=== PATIENT | male | born 2000 | race Caucasian/White ===

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

== ENCOUNTER 2021-06-29 03:10 | Emergency (ER) | payer SELFPAY ==
[~2021-06-29] VITALS: Ht 180.3 cm; Wt 79.3 kg
[2021-06-29 03:15] VITALS: BP 127/82
[2021-06-29 03:54] LABS: BACTERIA,URINE TRACE /HPF; BILIRUBIN,URINE NEGATIVE (NEGATIVE); CLARITY,URINE SLIGHTLY CLOUDY; COLOR,URINE YELLOW; GLUCOSE, URINE (UA) NEGATIVE (NEGATIVE); KETONES,URINE NEGATIVE (NEGATIVE); LEUKOCYTE ESTERASE ,URINE NEGATIVE (NEGATIVE); NITRITE,URINE NEGATIVE (NEGATIVE); PH,URINE 5.5 (5-9); PROTEIN,URINE 1+ (NEGATIVE); RBC,URINE >100 /HPF
[2021-06-29] MEDS ORDERED: DOXY100T2 PO (04:10)
--- NOTE | 2021-06-29 04:10 | ED GU-Male ---
General Chief Complaint: - Urinary Stated Complaint: PAIN ON URINATION Nursing Triage Note: Pt awake, alert, oriented, ambulated from waiting room to ED2 without difficulty. Reports pain during urination for the past day et also states he saw blood in his urine the last time he voided. Airway intact. Respirations even et unlabored. Skin warm, dry, appropriate for ethnicity. No sx of distress or discomfort. Source: patient Exam Limitations: no limitations History of Present Illness Date Seen by Provider: Jun 29, 2021 Time Seen by Provider: 03:45 Initial Comments 20 y/o male w painful urination starting today. Also noticed blood in his urine x 1. no penile DC. Sexually active, one partner. NO Hx STD's. No rash, no penile lesions. Allergies and Home Medications Allergies Coded Allergies: No Known Drug Allergies (Unverified , 08/06/19) Home Medications Doxycycline Hyclate 100 Mg Tablet, 100 MG PO BID Prescribed by: DESTINY CHAVIRA on 08/06/19 1700 Doxycycline Hyclate 100 Mg Tablet, 100 MG PO BID Prescribed by: JAY BUSCH on 06/29/21 0410 Patient Home Medication List Home Medication List Reviewed: Yes Review of Systems Review of Systems Constitutional: No chills, No dizziness, No fever, No malaise, No weakness Respiratory: no symptoms reported Cardiovascular: no symptoms reported Gastrointestinal: No abdominal pain, No constipation, No diarrhea, No loss of appetite, No nausea, No vomiting Genitourinary: see HPI; denies discharge; dysuria; denies frequency, denies flank pain; hematuria; denies urgency Musculoskeletal: back pain (had back pain R sided (CVA) @ onset, now resolved); No joint pain, No muscle pain Past Pbaqmkk-Fruvny-Nkgwhw Hx Patient Social History Tobacco Use?: No Use of E-Cig and/or Vaping dev: No Substance use?: No Alcohol Use?: No Pt feels they are or have been: No Immunizations Up To Date Influenza Vaccine Up-to-Date: No; Not Current Seasonal Allergies Seasonal Allergies: No Past Medical History Surgeries: Yes (Ear drum repair, BMT) Respiratory: No Cardiac: No Neurological: No Genitourinary: No Gastrointestinal: No Musculoskeletal: No Endocrine: No HEENT: No Cancer: No Psychosocial: No Integumentary: No Blood Disorders: No Physical Exam Vital Signs Vital Signs - First Documented 06/29/21 03:15 Temp 36.4 Pulse 70 Resp 18 B/P (MAP) 127/82 (97) Pulse Ox 98 O2 Delivery Room Air Capillary Refill : Less Than 3 Seconds Height, Weight, BMI Height: '" Weight: lbs. oz. kg; 24.00 BMI Method: General Appearance: WD/WN, no apparent distress Gastrointestinal: non tender, soft, no organomegaly; No distended, No guarding, No rebound Back: no CVA tenderness, no vertebral tenderness Neurologic/Psychiatric: alert, normal mood/affect, oriented x 3 Skin: normal color, warm/dry Progress/Results/Core Measures Suspected Sepsis SIRS Temperature: Pulse: 70 Respiratory Rate: 18 Blood Pressure 127 /82 Mean: 97 Results/Orders Lab Results Laboratory Tests Test 06/29/21 03:30 Range/Units Urine Color YELLOW Urine Clarity SLIGHTLY CLOUDY Urine pH 5.5 5-9 Urine Specific [place] >=1.030 1.016-1.022 Urine Protein 1+ H NEGATIVE Urine Glucose (UA) NEGATIVE NEGATIVE Urine Ketones NEGATIVE NEGATIVE Urine Nitrite NEGATIVE NEGATIVE Urine Bilirubin NEGATIVE NEGATIVE Urine Urobilinogen 0.2 < = 1.0 MG/DL Urine Leukocyte Esterase NEGATIVE NEGATIVE Urine RBC (Auto) 3+ H NEGATIVE Urine RBC >100 H /HPF Urine WBC NONE /HPF Urine Crystals NONE /LPF Urine Bacteria TRACE /HPF Urine Casts NONE /LPF Urine Mucus LARGE H /LPF Urine Culture Indicated NO My Orders Orders - ROVENSTTANYAJAY L DO Urinalysis (06/29/21 03:23) Urinalysis (06/29/21 03:30) Neis Duran Dna Urine Test (06/29/21 04:04) Chlamydia Trachomatis Urine (06/29/21 04:04) Vital Signs/I&O 06/29/21 03:15 Temp 36.4 Pulse 70 Resp 18 B/P (MAP) 127/82 (97) Pulse Ox 98 O2 Delivery Room Air Capillary Refill : Less Than 3 Seconds Blood Pressure Mean: 97 Departure Impression Primary Impression: Hematuria Qualified Codes: R31.9 - Hematuria, unspecified Additional Impression: Urethritis, nonspecific Disposition: 01 HOME, SELF-CARE Condition: Stable Departure-Patient Inst. Referrals: VIJAY JULES MD (PCP/Family) Primary Care Physician Patient Instructions: Urethritis (DC), Blood in Urine (Hematuria), Adult ED Add. Discharge Instructions: Follow up with Dr Jules in 1 week to recheck your urine and to discuss lab results and treatment All discharge instructions reviewed with patient and/or family. Voiced understanding. Scripts Doxycycline Hyclate (Doxycycline Hyclate) 100 Mg Tablet 100 MG PO BID, #14 TAB 0 Refills Prov: JAY BUSCH DO 06/29/21 JAY BUSCH DO Jun 29, 2021 04:10
--- OUTSIDE RECORDS SUMMARY | 2021-06-30 13:19 | XMS REPORT | Clinical Summary ---
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 If you d o not see the information that you expected, contact Release of Information in [facility] [employer] Information Management department at [phone] for further assistan ce in locating additional records.[facility] Allergies No Known Active Allergies Medications End Date Status Medication Sig Dispensed Refills Start Date Active levalbuterol tartrate(+) Inhale 2 45 g 3 0 (XOPENEX HFA) 45 puffs by 8 mcg/actuation mouth into inhalerIndications: the lungs Persistent asthma without every 6 hours complication, unspecified as needed for asthma severity Wheezing or Shortness of Breath. Additional Information Patient taking differently: 1 puff Inhalation DAILY PRN, Wheezing, Shortness of Breath, rarely, Reported on 04/19/2018 Active Problems Problem Noted Date Asthma 04/19/2018 Osteochondroma of left femur 02/12/2018 Elevated BP without diagnosis of hypertension 2017 Last Assessment & Plan: Formatting of this note might be differ ent from the original. Kale is very anxious today, but he has an elevated reading recorded in the chart from 6 months ago also. I wi ll review previous records. Father has hypertension. He may need ambulato ry blood pressure monitoring to determine if he has white coat hyperten eric. Anxiety 02/12/2018 Last Assessment & Plan: Formatting of this note might be differ ent from the original. I explained to Kale and his mom yamile uriostegui explains his symptoms. He has had an extensive work up for his ch est pain. I offered to review all of his records from [place]. I sugge sted he stay with his PCP there, who has treated him since he was very young . He has recently restarted therapy, and I suggested this occur on a regular basis. 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 I also recommended regula r exercise, healthy eating, and meditation or relaxation. Neck pain 08/06/2017 Perforation of right tympanic membrane 08/30/2013 Hearing loss, conductive 08/30/2013 Overview: Formatting of this note might be differ ent from the original. right Excessive cerumen in ear canal 08/30/2013 Immunizations Name Administration Dates Next Due DTaP vaccine IM 07/21/2004, 10/04/2001, , 2000, (Infanrix) 2000 Hepatitis B Vaccine 01/04/2001, 2000, 09/2000 Ped/Adol 3 Dose IM Hib vaccine, unspecified 10/04/2001, 01/04/2001, 10/2000, 2000 (Historical) IPV 07/21/2004, 08/30/2001, 10/2000, 2000 MMR Vaccine 07/21/2004, 08/30/2001 Tdap Vaccine 03/10/2013 Varicella Vaccine Live 05/18/2005, 07/21/2004 Surgical History Surgery Date Site/Laterality Comments HX ADENOIDECTOMY HX EAR TUBES Medical History Medical History Date Comments Seasonal allergic reaction Asthma Eczema Family History Medical History Relation Name Comments Hypertension Father Hypertension Maternal Grandmother Osteoporosis Maternal Grandmother Allergy-severe Mother Migraines Mother Relation Name Status Comments Brother Alive Father Alive Maternal Grandmother Mother Alive Social History Date Tobacco Use Types Packs/Day Years Used Never Smoker Smokeless Tobacco: Never Used Comments: mom smokes outside Drinks/Week oz/Week Comments Alcohol Use No Sex Assigned at Date Recorded Not on file Last Filed Vital Signs Reading Time Taken Comments Vital Sign 105/70 04/19/2018 10:19 AM CDT Blood Pressure 96 04/19/2018 10:19 AM CDT Pulse 37 C (98.6 F) 04/19/2018 10:19 AM CDT Temperature 17 04/19/2018 10:19 AM CDT Respiratory Rate 98% 04/19/2018 10:19 AM CDT Oxygen Saturation - - Inhaled Oxygen Concentration 77.7 kg (171 lb 3.2 oz) 04/19/2018 10:19 AM CDT Weight 178.2 cm (5' 10.16") 04/19/2018 10:19 AM CDT Height 24.45 04/19/2018 10:19 AM CDT Body Mass Index Plan of Treatment Health Maintenance Due Date Last Done Comments HPV VACCINES (1 - Male 2011 2-dose series) HIV SCREENING 2015 HEPATITIS C SCREENING 2018 PHYSICAL (COMPREHENSIVE) 2018 EXAM INFLUENZA VACCINE 08/22/2021 DTAP/TDAP VACCINES (7 - 03/10/2023 03/10/2013, Td) 07/21/2004, 10/04/2001, Additional history exists MENINGOCOCCAL VACCINE Aged Out No longer letty cooper based on patient's age to (Sandeep DELA CRUZ) complete this topic Results Not on filefrom Last 3 Months Advance Directives Patient Financial Services Representative Explanation Type Date Recorded Advance Directive/DPOA
== END 2021-06-29 04:15 | disposition home or self-care (01) ==
LOC: EDUNIT# 03:10 → ER FS 03:13
DX: R31.9 Hematuria, unspecified (principal); N34.1 Nonspecific urethritis
CPT/HCPCS: 81000; 87491; 87591; 99282

== ENCOUNTER 2022-06-27 04:10 | Emergency (ER) | payer BC, OTHER ==
[~2022-06-27] VITALS: Ht 177.8 cm; Wt 81.6 kg
--- NOTE | 2022-06-27 04:22 | ED Head Injury ---
General Chief Complaint: Head/Cervical Problems Stated Complaint: HEADACHE AFTER INJ History of Present Illness Date Seen by Provider: Jun 27, 2022 Time Seen by Provider: 04:21 Initial Comments 21-year-old male presents with a headache. He reports that yesterday afternoon around 3 PM he got shot head with a paintball. He has had a headache that is gotten worse. He feels little nauseated. He has not taken any for the pain. He has no focal deficits. No systemic complaints Allergies and Home Medications Allergies Coded Allergies: No Known Drug Allergies (Unverified , 08/06/19) Patient Home Medication List Home Medication List Reviewed: Yes Doxycycline Hyclate (Doxycycline Hyclate) 100 Mg Tablet, 100 MG PO BID Prescribed by: DESTINY CHAVIRA on 08/06/19 1700 Doxycycline Hyclate (Doxycycline Hyclate) 100 Mg Tablet, 100 MG PO BID Prescribed by: JAY BUSCH on 06/29/21 0410 Review of Systems Review of Systems Constitutional: No chills, No fever Eyes: No Symptoms Reported Ears, Nose, Mouth, Throat: no symptoms reported Respiratory: no symptoms reported Cardiovascular: no symptoms reported Gastrointestinal: No abdominal pain; nausea; No vomiting Genitourinary: no symptoms reported Musculoskeletal: no symptoms reported Skin: no symptoms reported Psychiatric/Neurological: Headache Endocrine: No Symptoms Reported Past Wsfpgqh-Tnzzvb-Tkquqq Hx Seasonal Allergies Seasonal Allergies: No Past Medical History Surgeries: Yes (Ear drum repair, BMT) Respiratory: No Cardiac: No Neurological: No Genitourinary: No Gastrointestinal: No Musculoskeletal: No Endocrine: No HEENT: No Cancer: No Psychosocial: No Integumentary: No Blood Disorders: No Physical Exam Vital Signs Vital Signs - First Documented 06/27/22 04:15 Temp 36.0 Pulse 88 Resp 17 B/P (MAP) 143/119 (127) Pulse Ox 99 O2 Delivery Room Air Capillary Refill : Height, Weight, BMI Height: '" Weight: lbs. oz. kg; 24.00 BMI Method: General Appearance: WD/WN, no apparent distress HEENT: PERRL/EOMI, normal ENT inspection Cardiovascular: normal peripheral pulses, regular rate, rhythm Respiratory: lungs clear, normal breath sounds Gastrointestinal: non tender, soft Extremities: non-tender, normal inspection Psychiatric: alert, oriented x 3 Cra[place] Nerves: normal hearing, normal speech, PERRL Coordination/Gait: normal gait Motor/Sensory: no motor deficit, no sensory deficit Skin: normal color, warm/dry Progress/Results/Core Measures Results/Orders My Orders Orders - RADHA CHAPARRO DO Ct Head Wo (06/27/22 04:20) Vital Signs/I&O 06/27/22 04:15 Temp 36.0 Pulse 88 Resp 17 B/P (MAP) 143/119 (127) Pulse Ox 99 O2 Delivery Room Air Departure Impression Primary Impression: Head injury, closed, without LOC Qualified Codes: S09.90XA - Unspecified injury of head, initial encounter Disposition: HOME, SELF-CARE Condition: Stable Departure-Patient Inst. Referrals: VIJAY ATKINSON MD (PCP/Family) Primary Care Physician Patient Instructions: Minor Head Injury, Adult ED Add. Discharge Instructions: Tylenol or ibuprofen as needed for pain If symptoms our not improving over the next week follow-up with your primary care provider All discharge instructions reviewed with patient and/or family. Voiced un derstanding. RADHA CHAPARRO DO Jun 27, 2022 04:22
--- NOTE | 2022-06-27 05:38 | Diagnostic Imaging Report ---
PROCEDURE: CT head without contrast. TECHNIQUE: Multiple contiguous axial images were obtained through the brain without the use of intravenous contrast. Auto Exposure Controls were utilized during the CT exam to meet ALARA standards for radiation dose reduction. INDICATION: Trauma CT HEAD: CT images of the head were obtained. FINDINGS: Ventricles and sulci are within normal limits for size. There is no intracranial hemorrhage identified. There is no abnormal mass effect or shift of midline structures. IMPRESSION: Unremarkable CT of the head. Dictated by: Dictated on workstation # [id number]
[2022-06-27 06:04] VITALS: BP 143/119
== END 2022-06-27 06:04 | disposition home or self-care (01) ==
LOC: EDUNIT# 04:10 → ER FS 04:13
DX: S09.90XA Unspecified injury of head, initial encounter (principal); Z28.310 Unvaccinated for COVID-19; W34.011A Accidental discharge of paintball gun, initial encounter
CPT/HCPCS: 70450

== ENCOUNTER 2022-08-26 23:30 | Emergency (ER) | payer BC ==
[~2022-08-26] VITALS: Ht 182 cm; Wt 81.6 kg
--- NOTE | 2022-08-27 00:18 | ED Cardiac General ---
History of Present Illness General Chief Complaint: Chest Pain Stated Complaint: CHEST PAIN Nursing Triage Note: PATIENT VERBALIZED APPROX 2 HOURS AGO HE HAD CHEST PAIN. STATES HE MOVED AROUND/STRETCHED, TOOK SLOW BREATHS. DENIES INJURY. TO HELP RELIEVE THE PAIN. PATIENT VERBALIZED NO PAIN AT THIS TIME. DID STATES ARM PAIN PRIOR TO ARRIVAL. Source: patient Exam Limitations: no limitations History of Present Illness Date Seen by Provider: Aug 27, 2022 Time Seen by Provider: 11:45 Initial Comments Patient is a 22-year-old male who presents with cute onset sharp substernal chest pain starting 2 hours ago. Chest pain lasted approximately 10 minutes was rated moderate to severe. Patient states he moved around and stretch and take slow deep breaths and chest pain resolved. No pain at this time. No shortness of breath. No fever chills, cough sore throat. Patient states he is had occasional episodes of chest pain before. 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 Allergies and Home Medications Allergies Coded Allergies: No Known Drug Allergies (Unverified , 08/06/19) Patient Home Medication List Home Medication List Reviewed: Yes Doxycycline Hyclate (Doxycycline Hyclate) 100 Mg Tablet, 100 MG PO BID Prescribed by: DESTINY CHAVIRA on 08/06/19 1700 Doxycycline Hyclate (Doxycycline Hyclate) 100 Mg Tablet, 100 MG PO BID Prescribed by: JAY BUSCH on 06/29/21 0410 Review of Systems Review of Systems Constitutional: see HPI EENTM: See HPI Respiratory: See HPI Cardiovascular: See HPI Gastrointestinal: See HPI Musculoskeletal: see HPI Past Biuwmmw-Egwwpx-Dpuyqk Hx Patient Social History Tobacco Use?: No Use of E-Cig and/or Vaping dev: No Substance use?: No Pt feels they are or have been: No Immunizations Up To Date First/Initial COVID19 Vaccinat: denies Second COVID19 Vaccination Isaac: denies Third COVID19 Vaccination Date: denies Seasonal Allergies Seasonal Allergies: No Past Medical History Surgeries: Yes (Ear drum repair, BMT) Respiratory: No Cardiac: No Neurological: No Genitourinary: No Gastrointestinal: No Musculoskeletal: No Endocrine: No HEENT: No Cancer: No Psychosocial: No Integumentary: No Blood Disorders: No Physical Exam Vital Signs Vital Signs - First Documented 08/26/22 23:35 Temp 36.9 Pulse 82 Resp 20 B/P (MAP) 139/87 (104) Pulse Ox 99 O2 Delivery Room Air Capillary Refill : Less Than 3 Seconds Height, Weight, BMI Height: '" Weight: lbs. oz. kg; 24.00 BMI Method: General Appearance: No Apparent Distress, WD/WN, Anxious Respiratory: Chest Non Tender Cardiovascular: Regular Rate, Rhythm, No Edema Extremity: Normal Inspection, Non Tender Neurologic/Psychiatric: Alert, Oriented x3 Focused Exam Sepsis Stage: Ruled Out Progress/Results/Core Measures Results/Orders My Orders Orders - OK KLEIN DO Ekg Tracing (08/27/22 00:02) Chest 1 View Ap/Pa Only (08/27/22 00:04) Vital Signs/I&O 08/26/22 23:35 Temp 36.9 Pulse 82 Resp 20 B/P (MAP) 139/87 (104) Pulse Ox 99 O2 Delivery Room Air Blood Pressure Mean: 104 Departure Communication (Admissions) Chest x-ray: No acute cardiopulmonary disease per EKG: Normal sinus rhythm, no acute ST-T wave changes Patient with normal EKG, chest x-ray without cardiopulmonary disease. Patient asymptomatic in the emergency department with stable vital signs. Recommendations are watchful waiting and PCP follow-up as needed. Return precautions reviewed. Patient verbalizes understanding and agreement with discharge instructions prior to departure. Impression Primary Impression: Chest pain without hemodynamic instability Disposition: 01 HOME, SELF-CARE Condition: Stable Departure-Patient Inst. Decision time for Depature: 00:17 Referrals: VIJAY ATKINSON MD (PCP/Family) Primary Care Physician Patient Instructions: Chest Pain Add. Discharge Instructions: You were evaluated in the emergency department for chest pain. EKG and chest x- ray were performed and are nondiagnostic. The cause of your chest pain has not been determined. Please go home and rest and follow-up with your PCP as needed. Return to the ED if new or worsening symptoms. All discharge instructions reviewed with patient and/or family. Voiced understanding. OK KLEIN DO Aug 27, 2022 00:18
[2022-08-27 00:20] VITALS: BP 129/75
--- NOTE | 2022-08-27 07:06 | Diagnostic Imaging Report ---
CHEST 1 VIEW AP/PA ONLY Indication: Chest pain. Comparison: None available. Findings: No focal airspace disease in the visualized lungs. Please note that the posterior lower lobes are poorly evaluated by portable radiography. No pleural effusion or pneumothorax. Normal cardiomediastinal silhouette. Impression: 1. No acute cardiopulmonary process by portable radiography. Dictated by: Dictated on workstation # [id number]
== END 2022-08-27 00:20 | disposition home or self-care (01) ==
LOC: EDUNIT# 23:30 → ER FS 23:33
DX: R07.2 Precordial pain (principal); Z28.310 Unvaccinated for COVID-19
CPT/HCPCS: 71045; 93005; 93041

== ENCOUNTER 2022-10-19 09:55 | Emergency (ER) | payer BC ==
--- NOTE | 2022-10-19 10:15 | ED Headache ---
General Chief Complaint: Head/Cervical Problems Stated Complaint: HEADACHE; COVID+ Source: patient Exam Limitations: no limitations History of Present Illness Date Seen by Provider: Oct 19, 2022 Time Seen by Provider: 09:50 Initial Comments Patient is a 22-year-old male COVID-positive for the past 4 days who presents with headache last night which resolved this morning. Reports body aches cough chills denies fever neck pain stiffness or rash. No shortness of breath chest pain palpitations. No other acute symptoms or complaints. Patient took Tylenol and ibuprofen with symptom relief. Timing/Duration: 24 hours Severity/Quality: other Location: global Prior Headaches/Recent Trauma: other Modifying Factors: improves with other Associated Symptoms: other Allergies and Home Medications Allergies Coded Allergies: No Known Drug Allergies (Unverified , 08/06/19) Patient Home Medication List Home Medication List Reviewed: Yes Doxycycline Hyclate (Doxycycline Hyclate) 100 Mg Tablet, 100 MG PO BID Prescribed by: DESTINY CHAVIRA on 08/06/19 1700 Doxycycline Hyclate (Doxycycline Hyclate) 100 Mg Tablet, 100 MG PO BID Prescribed by: JAY BUSCH on 06/29/21 0410 Review of Systems Review of Systems Constitutional: see HPI Eyes: See HPI Ears, Nose, Mouth, Throat: see HPI Respiratory: see HPI Cardiovascular: see HPI Gastrointestinal: see HPI Genitourinary: see HPI Musculoskeletal: see HPI Skin: see HPI Psychiatric/Neurological: See HPI All Other Systems Reviewed Negative Unless Noted: No Past Txtpabd-Dvfgtv-Govlhb Hx Patient Social History Tobacco Use?: No Use of E-Cig and/or Vaping dev: No Substance use?: No Alcohol Use?: No Pt feels they are or have been: No Immunizations Up To Date First/Initial COVID19 Vaccinat: denies Second COVID19 Vaccination Isaac: denies Third COVID19 Vaccination Date: denies Seasonal Allergies Seasonal Allergies: No Past Medical History Surgery/Hospitalization HX: Asthma Surgeries: Yes (Ear drum repair, BMT) Respiratory: No Cardiac: No Neurological: No Genitourinary: No Gastrointestinal: No Musculoskeletal: No Endocrine: No HEENT: No Cancer: No Psychosocial: No Integumentary: No Blood Disorders: No Physical Exam Vital Signs Capillary Refill : Height, Weight, BMI Height: '" Weight: lbs. oz. kg; 24.00 BMI Method: General Appearance: WD/WN, no apparent distress HEENT: PERRL/EOMI, TMs normal, pharynx normal Neck: non-tender, full range of motion, supple Cardiovascular: normal peripheral pulses, regular rate, rhythm, no edema Respiratory: lungs clear Gastrointestinal: non tender, soft Extremities: normal inspection Psychiatric: alert, oriented x 3 Motor/Sensory: no sensory deficit, no pronator drift Departure Communication (Admissions) Patient COVID-positive with nonspecific symptoms. Headache has resolved. No neurologic deficits. Recommendations are for supportive care and PCP follow-up. Return precautions reviewed. Patient verbalizes understanding agreement discharge instructions prior to departure. Impression Primary Impression: COVID Additional Impression: Headache Disposition: HOME, SELF-CARE Condition: Stable Departure-Patient Inst. Decision time for Depature: 10:14 Referrals: VIJAY ATKINSON MD (PCP) Primary Care Physician Patient Instructions: COVID-19 ED, Acute Pain, Adult (DC) Add. Discharge Instructions: You were evaluated in the emergency department for headache related to COVID. Your headache is a common symptom COVID and is not caused by subarachnoid hemorrhage or ruptured aneurysm. Please go home and rest increase fluids and take ibuprofen and Tylenol for pain and vitamin C. Follow-up with your PCP for reevaluation if symptoms persist. Return to the ED if new or worsening symptom s. All discharge instructions reviewed with patient and/or family. Voiced understanding. OK KLEIN DO Oct 19, 2022 10:15
[2022-10-19 10:20] VITALS: BP 153/96
== END 2022-10-19 10:19 | disposition home or self-care (01) ==
LOC: EDUNIT# 09:55 → ER FS 09:57
DX: U07.1 COVID-19 (principal); Z28.310 Unvaccinated for COVID-19
CPT/HCPCS: 99281

== ENCOUNTER → 2022-12-17 | Outpatient (CLI) | payer BC ==
--- NOTE | 2022-12-17 18:01 | Diagnostic Imaging Report ---
INDICATION: Osteochondroma, lump COMPARISON: None available TECHNIQUE: 4 radiographs of the left femur dated 12/17/2022. FINDINGS: No acute fracture or dislocation. A 6.3 cm osseous excrescence is noted arising off of the anterior aspect of distal femoral shaft. This appears to be in continuity with the cortex and underlying medullary cavity. No associated periosteal reaction. No focal osseous destruction. No knee joint effusion. No suspicious radiopaque foreign body. IMPRESSION: Osseous excrescence arising from the anterior aspect of the distal femoral shaft is felt to relate to a sessile osteochondroma. Dictated by: Dictated on workstation # [id number]
== END ==
LOC: RAD FS 14:27
PROVIDERS: ATTEND Nurse Practitioner Family
DX: D16.22 Benign neoplasm of long bones of left lower limb (principal)
CPT/HCPCS: 73552

== ENCOUNTER 2023-02-06 15:28 | Emergency (ER) | payer SELFPAY ==
[~2023-02-06] VITALS: Ht 180.3 cm; Wt 75.5 kg
--- NOTE | 2023-02-06 15:48 | ED Chest Pain ---
General Chief Complaint: Abdominal/GI Problems Stated Complaint: CHEST PAIN Source: patient Exam Limitations: no limitations History of Present Illness Date Seen by Provider: Feb 06, 2023 Time Seen by Provider: 15:30 Initial Comments Patient is a 22-year-old male who presents with 24 hours of intermittent vomiting diarrhea and chest wall pain upon waking this evening. Chest wall pain is worse with deep breathing and coughing. He denies shortness of breath fever chills and sweats. No hematemesis, coffee-ground emesis, bloody diarrhea or hematochezia. Denies dizziness or lightheadedness. No history of asthma or pulmonary disease. No medications or therapies taken prior to ED arrival. Timing/Duration: 1-3 hours Severity/Quality: mild Location: substernal Radiation: other Activities at Onset: other Prior CP/Workup: other Modifying Factors: improves with other ASA po CARD PUNCHER: No NTG SL CARD PUNCHER: No Allergies and Home Medications Allergies Coded Allergies: No Known Drug Allergies (Unverified , 08/06/19) Patient Home Medication List Home Medication List Reviewed: Yes Doxycycline Hyclate (Doxycycline Hyclate) 100 Mg Tablet, 100 MG PO BID Prescribed by: DESTINY CHAVIRA on 08/06/19 1700 Doxycycline Hyclate (Doxycycline Hyclate) 100 Mg Tablet, 100 MG PO BID Prescribed by: JAY BUSCH on 06/29/21 0410 Review of Systems Review of Systems Constitutional: see HPI EENTM: See HPI Respiratory: See HPI Cardiovascular: See HPI Gastrointestinal: See HPI Genitourinary: See HPI Musculoskeletal: no symptoms reported Skin: see HPI Psychiatric/Neurological: See HPI Endocrine: See HPI Hematologic/Lymphatic: See HPI All Other Systems Reviewed Negative Unless Noted: No Past Ljuisxy-Kvxnqp-Hslfam Hx Patient Social History Tobacco Use?: No Substance use?: No Alcohol Use?: No Pt feels they are or have been: No Immunizations Up To Date First/Initial COVID19 Vaccinat: denies Second COVID19 Vaccination Isaac: denies Third COVID19 Vaccination Date: denies Seasonal Allergies Seasonal Allergies: No Past Medical History Surgery/Hospitalization HX: Asthma Surgeries: Yes (Ear drum repair, BMT) Respiratory: No Cardiac: No Neurological: No Genitourinary: No Gastrointestinal: No Musculoskeletal: No Endocrine: No HEENT: No Cancer: No Psychosocial: No Integumentary: No Blood Disorders: No Physical Exam Vital Signs Vital Signs - First Documented 02/06/23 15:32 Temp 36.5 Pulse 95 Resp 18 B/P (MAP) 152/88 (109) Pulse Ox 100 O2 Delivery Room Air Capillary Refill : Less Than 3 Seconds Height, Weight, BMI Height: '" Weight: lbs. oz. kg; 24.00 BMI Method: General Appearance: No Apparent Distress, WD/WN HEENT: PERRL/EOMI, TMs Normal, Pharynx Normal, Moist Mucous Membranes Neck: Full Range of Motion, Normal Inspection, Non Tender, Supple Respiratory: Chest Non Tender, Lungs Clear, Normal Breath Sounds, No Accessory Muscle Use, No Respiratory Distress, Other (chest wall pain) Cardiovascular: Regular Rate, Rhythm, No Edema Gastrointestinal: Non Tender, Soft Extremity: Non Tender, No Calf Tenderness Neurologic/Psychiatric: Alert, Oriented x3, No Motor/Sensory Deficits Focused Exam Sepsis Stage: Ruled Out Progress/Results/Core Measures Results/Orders My Orders Orders - OK KLEIN DO Chest Pa/Lat (2 View) (02/06/23 15:44) Vital Signs/I&O 02/06/23 15:32 Temp 36.5 Pulse 95 Resp 18 B/P (MAP) 152/88 (109) Pulse Ox 100 O2 Delivery Room Air Departure Communication (Admissions) Chest XR: No acute cardiopulmonary disease. Patient with musculoskeletal chest wall pain after vomiting and diarrhea reproducible on exam. No febrile, vital stable. No evidence of pneumothorax, pericardial effusion on x-ray. Recommendations for supportive care watchful waiting and PCP follow-up. Return precautions reviewed patient verbalizes understanding and agreement discharge instructions prior to departure. Impression Primary Impression: Chest wall pain Additional Impression: Pleurisy Disposition: 01 HOME, SELF-CARE Condition: Stable Departure-Patient Inst. Decision time for Depature: 16:04 Referrals: VAL VICKERS APRN (PCP) Primary Care Physician [facility] (Family) Primary Care Physician Patient Instructions: Chest Pain That Is Not Caused by the Heart (DC) Add. Discharge Instructions: You were evaluated in the emergency department for chest pain. Your symptoms are consistent with musculoskeletal chest wall pain caused from vomiting. Please take Tylenol as needed for pain follow-up with your PCP in the next 3 to 5 days for reevaluation if symptoms persist. Return to the ED if new or concerning symptoms. All discharge instructions reviewed with patient and/or family. Voiced understanding. OK KLEIN DO Feb 06, 2023 15:48
[2023-02-06 16:08] VITALS: BP 124/82
--- NOTE | 2023-02-06 16:17 | Diagnostic Imaging Report ---
HISTORY: Chest pain. TECHNIQUE: 2 views of the chest. COMPARISON: 08/27/2022. FINDINGS: Lung volumes are large. No consolidation is seen. There is no pleural effusion or pneumothorax. The cardiac silhouette is normal in size. IMPRESSION: No acute pulmonary abnormality. Dictated by: Dictated on workstation # [id number]
== END 2023-02-06 16:09 | disposition home or self-care (01) ==
LOC: EDUNIT# 15:28 → ER FS 15:30
DX: R09.1 Pleurisy (principal); Z28.310 Unvaccinated for COVID-19
CPT/HCPCS: 71046

== ENCOUNTER 2023-03-24 04:33 | Emergency (ER) | payer SELFPAY ==
[~2023-03-24] VITALS: Ht 180.3 cm; Wt 76.4 kg
--- NOTE | 2023-03-24 04:58 | ED EENT ---
History of Present Illness General Chief Complaint: Ear Problems Stated Complaint: EAR RINGING R History of Present Illness Date Seen by Provider: March 24, 2023 Time Seen by Provider: 04:50 Initial Comments 22-year-old male with PMH of right ear perforation when he was younger, is here with complaints of ringing in his right ear and wax in his ears. Patient had seen his PCP a couple days ago and was told to use Debrox at home to clear out his wax. Patient has not done this, and he said he was up late last night and decided to just come in to the ER. Denies pain, discharge from the ear, fever and chills, dizziness, headache, sinus infection. Allergies and Home Medications Allergies Coded Allergies: No Known Drug Allergies (Unverified , 08/06/19) Patient Home Medication List Home Medication List Reviewed: Yes Doxycycline Hyclate (Doxycycline Hyclate) 100 Mg Tablet, 100 MG PO BID Prescribed by: DESTINY CHAVIRA on 08/06/19 1700 Doxycycline Hyclate (Doxycycline Hyclate) 100 Mg Tablet, 100 MG PO BID Prescribed by: JAY BUSCH on 06/29/21 0410 Review of Systems Review of Systems Constitutional: no symptoms reported Eyes: No Symptoms Reported Ears: See HPI, Tinnitus Nose: no symptoms reported Mouth: no symptoms reported Throat: no symptoms reported Respiratory: no symptoms reported Cardiovascular: no symptoms reported Gastrointestinal: no symptoms reported Musculoskeletal: no symptoms reported Skin: no symptoms reported Neurological: No Symptoms Reported Hematologic/Lymphatic: No Symptoms Reported Immunological/Allergic: no symptoms reported Past Bqkdush-Jnywtn-Grxrtb Hx Immunizations Up To Date First/Initial COVID19 Vaccinat: denies Second COVID19 Vaccination Isaac: denies Third COVID19 Vaccination Date: denies Seasonal Allergies Seasonal Allergies: No Past Medical History Surgery/Hospitalization HX: Asthma Surgeries: Yes (Ear drum repair, BMT) Respiratory: No Cardiac: No Neurological: No Genitourinary: No Gastrointestinal: No Musculoskeletal: No Endocrine: No HEENT: No Cancer: No Psychosocial: No Integumentary: No Blood Disorders: No Physical Exam Height, Weight, BMI Height: '" Weight: lbs. oz. kg; 23.00 BMI Method: General Appearance: WD/WN, no apparent distress Ears: right ear TM normal (Both ears have wax that is not impacted, but the left side has more wax than the right. The right side tympanic membrane can partially be seen and does not appear to be infected or perforated at this time. The left tympanic membrane cannot be visualized due to wax.); bilateral ear auricle normal Nose: normal inspection Mouth/Throat: normal mouth inspection Neck: non-tender, full range of motion Neurologic/Psychiatric: alert, oriented x 3 Skin: normal color Progress/Results/Core Measures Progress Progress Note : Progress Note 1. EAR WAX, BILATERAL: - No infection at this time - Advised to follow PCP advice and use debrox for the ears - Keep ENT appointment. Call ENT office tomorrow to request earlier appointment. Departure Impression Primary Impression: Excess ear wax Disposition: HOME, SELF-CARE Condition: Stable Departure-Patient Inst. Referrals: VAL VICKERS APRN (PCP) Primary Care Physician [facility] (Family) Primary Care Physician Patient Instructions: Ear Wax Impaction ED, Tinnitus (Ringing in the Ears) Add. Discharge Instructions: -- Ear wax, not impacted - Advised to follow PCP advice and use debrox for the ears - Keep ENT appointment. Call ENT office tomorrow to request earlier appointment. All discharge instructions reviewed with patient and/or family. Voiced understanding. TAMARA BYRNES MD March 24, 2023 04:57
[2023-03-24 05:16] VITALS: BP 142/103
== END 2023-03-24 05:16 | disposition home or self-care (01) ==
LOC: EDUNIT# 04:33 → ER FS 04:37
DX: H61.23 Impacted cerumen, bilateral (principal); Z28.310 Unvaccinated for COVID-19
CPT/HCPCS: 99281

== ENCOUNTER 2023-04-19 17:24 | Emergency (ER) | payer SELFPAY ==
[~2023-04-19] VITALS: Ht 180 cm; Wt 74.8 kg
[2023-04-19] MEDS ORDERED: AUGMENTIN 875 MG TAB (AMOXICILLIN/CLAVULANATE) PO STA (17:33)
[2023-04-19 17:34] VITALS: BP 139/81
[2023-04-19] MEDS ORDERED: AMOX1TAB12 PO (17:38)
--- NOTE | 2023-04-19 17:38 | ED EENT ---
History of Present Illness General Chief Complaint: Ear Problems Stated Complaint: R EAR PAIN Source: patient, old records Exam Limitations: no limitations History of Present Illness Date Seen by Provider: April 19, 2023 Time Seen by Provider: 17:26 Initial Comments 22-year-old male with no pertinent past medical history other than right-sided ear perforation coming in due to right ear pain and ringing in his ear. Is been going on for over a month, he finished antibiotics which were amoxicillin 1 week ago. Continues to have intermittent pain and ringing in his ears. He has follow-up with ENT in a couple months, they have been unable to move the appointment up sooner. Otherwise denies any fever, headache, vision changes, or any other concerns. Allergies and Home Medications Allergies Coded Allergies: No Known Drug Allergies (Unverified , 08/06/19) Patient Home Medication List Home Medication List Reviewed: Yes Doxycycline Hyclate (Doxycycline Hyclate) 100 Mg Tablet, 100 MG PO BID Prescribed by: DESTINY CHAVIRA on 08/06/19 1700 Doxycycline Hyclate (Doxycycline Hyclate) 100 Mg Tablet, 100 MG PO BID Prescribed by: JAY BUSCH on 06/29/21 0410 Review of Systems Review of Systems Constitutional: No fever Eyes: No Symptoms Reported Ears: See HPI Nose: no symptoms reported Mouth: no symptoms reported Throat: no symptoms reported Past Dbvtlwp-Blmqgt-Hjxfak Hx Patient Social History Tobacco Use?: No Immunizations Up To Date First/Initial COVID19 Vaccinat: denies Second COVID19 Vaccination Isaac: denies Third COVID19 Vaccination Date: denies Seasonal Allergies Seasonal Allergies: No Past Medical History Surgery/Hospitalization HX: Asthma, Perforation right eardrum surgery Surgeries: Yes (Ear drum repair, BMT) Respiratory: No Cardiac: No Neurological: No Genitourinary: No Gastrointestinal: No Musculoskeletal: No Endocrine: No HEENT: No Cancer: No Psychosocial: No Integumentary: No Blood Disorders: No Physical Exam Height, Weight, BMI Height: '" Weight: lbs. oz. kg; 23.00 BMI Method: General Appearance: WD/WN, no apparent distress Eyes: bilateral eye normal inspection Ears: right ear TM dull, right ear TM red, right ear TM perforation; left ear TM normal; bilateral ear auricle normal, bilateral ear canal normal Nose: normal inspection Mouth/Throat: normal mouth inspection, pharynx normal Neck: non-tender, full range of motion, supple, normal inspection Cardiovascular: regular rate, rhythm, no edema, no murmur Respiratory: chest non-tender, lungs clear, normal breath sounds, no respiratory distress, no accessory muscle use Skin: normal color, warm/dry Progress/Results/Core Measures Results/Orders My Orders Orders - FRANTZ TREJO MD Amoxicillin/Clavulanate Tablet (Augmenti (04/19/23 17:33) Progress Progress Note : Progress Note 22-year-old male with above history coming in due to right ear pain and ringing. ABCs were intact and vitals were stable on presentation. Physical exam consistent with a tympanic membrane perforation with infection on the right. He was on amoxicillin recently, we will start him on Augmentin with a dose given here. He will need to follow-up with ENT as scheduled. Ibuprofen as needed for pain. Departure Impression Primary Impression: Otitis media Qualified Codes: H66.014 - Acute suppurative otitis media with spontaneous rupture of ear drum, recurrent, right ear Disposition: HOME, SELF-CARE Condition: Stable Departure-Patient Inst. Decision time for Depature: 17:40 Referrals: VAL VICKERS APRN (PCP) Primary Care Physician [facility] [place] (Family) Primary Care Physician ROSEMARY GARCIA MD Patient Instructions: Ruptured Eardrum (DC) Add. Discharge Instructions: There did appear to be a hole in your eardrum, I am unsure if this is been there for some time. This will cause hearing changes, and likely is what you are experiencing with the things you are hearing. We will be on a stronger antibiotic for the next week. This may not close on itself, and may need to be patched up again by your ENT. Take ibuprofen as needed for pain. Scripts Amoxicillin/Potassium Clav (Amox Tr-K Clv 875-125 mg Tab) 875 Mg-125 Mg Tablet 1 EACH PO BID for 7 Days, #14 TAB Prov: FRANTZ TREJO MD 04/19/23 Work/School Note: Work Release Form Date Seen in the Emergency Department: April 19, 2023 Return to Work: April 20, 2023 Restrictions: No Restrictions FRANTZ TREJO MD April 19, 2023 17:38
== END 2023-04-19 17:43 | disposition home or self-care (01) ==
LOC: EDUNIT# 17:24 → ER FS 17:25
DX: H66.91 Otitis media, unspecified, right ear (principal); Z28.310 Unvaccinated for COVID-19
CPT/HCPCS: 99283

== ENCOUNTER 2023-07-18 16:20 | Emergency (ER) | payer SELFPAY ==
[~2023-07-18] VITALS: Ht 180.3 cm; Wt 74.4 kg
[~2023-07-18 16:20] MED LIST changes: +AMOX1TAB12 PO
--- NOTE | 2023-07-18 16:33 | ED Cardiac General ---
History of Present Illness General Stated Complaint: TACHYCARDIA Source: patient Exam Limitations: no limitations History of Present Illness Date Seen by Provider: Jul 18, 2023 Time Seen by Provider: 16:24 Initial Comments 23-year-old male with no pertinent past medical history coming in due to an elevated heart rate. Typically his heart rates in the 60s to 70s. He was playing a game, felt like his heart rate was elevated and it was more 90s to just at 100. This was roughly 15 minutes prior to arrival. This has happened in the past and he feels very anxious. Denies any lower extremity swelling or pain, no recent long travel, no recent surgery, no hormone use, no significant chest pain, no fever, nausea, vomiting, diarrhea, weakness, numbness, rash, or any other concerns Allergies and Home Medications Allergies Coded Allergies: No Known Drug Allergies (Unverified , 08/06/19) Patient Home Medication List Home Medication List Reviewed: Yes Amoxicillin/Potassium Clav (Amox Tr-K Clv 875-125 mg Tab) 875 Mg-125 Mg Tablet, 1 EACH PO BID Prescribed by: FRANTZ TREJO on 04/19/23 1738 Doxycycline Hyclate (Doxycycline Hyclate) 100 Mg Tablet, 100 MG PO BID Prescribed by: DESTINY CHAVIRA on 08/06/19 1700 Doxycycline Hyclate (Doxycycline Hyclate) 100 Mg Tablet, 100 MG PO BID Prescribed by: JAY BUSCH on 06/29/21 0410 Review of Systems Review of Systems Constitutional: No fever EENTM: No Symptoms Reported Respiratory: No Symptoms Reported Cardiovascular: See HPI Gastrointestinal: No Symptoms Reported Genitourinary: No Symptoms Reported Musculoskeletal: no symptoms reported Skin: no symptoms reported Psychiatric/Neurological: No Symptoms Reported Endocrine: No Symptoms Reported Hematologic/Lymphatic: No Symptoms Reported Past Tihhbhq-Rdxyeb-Kvpeqq Hx Patient Social History Tobacco Use?: No Substance use?: No Alcohol Use?: No Immunizations Up To Date First/Initial COVID19 Vaccinat: denies Second COVID19 Vaccination Isaac: denies Third COVID19 Vaccination Date: denies Seasonal Allergies Seasonal Allergies: No Past Medical History Surgery/Hospitalization HX: Asthma, Perforation right eardrum surgery Surgeries: Yes (Ear drum repair, BMT) Respiratory: No Cardiac: No Neurological: No Genitourinary: No Gastrointestinal: No Musculoskeletal: No Endocrine: No HEENT: No Cancer: No Psychosocial: No Integumentary: No Blood Disorders: No Physical Exam Vital Signs Vital Signs - First Documented 07/18/23 16:24 Temp 36.1 Pulse 91 Resp 18 B/P (MAP) 145/94 (111) O2 Delivery Room Air Capillary Refill : Height, Weight, BMI Height: '" Weight: lbs. oz. kg; 23.00 BMI Method: General Appearance: WD/WN, Anxious HEENT: PERRL/EOMI, Normal ENT Inspection, Pharynx Normal Neck: Full Range of Motion, Normal Inspection, Non Tender, Supple Respiratory: Chest Non Tender, Lungs Clear, Normal Breath Sounds, No Accessory Muscle Use, No Respiratory Distress Cardiovascular: Regular Rate, Rhythm, No Edema, Normal Peripheral Pulses Gastrointestinal: Normal Bowel Sounds, Non Tender, Soft; No Distended, No Guarding Extremity: Normal Capillary Refill, Normal Inspection, Normal Range of Motion, Non Tender, No Calf Tenderness, No Pedal Edema Neurologic/Psychiatric: Alert, No Motor/Sensory Deficits, Normal Mood/Affect Skin: Normal Color, Warm/Dry Progress/Results/Core Measures Results/Orders My Orders Orders - FRANTZ TREJO MD Ekg Tracing (07/18/23 16:30) Chest 1 View, Ap/Pa Only (07/18/23 ) Vital Signs/I&O 07/18/23 16:24 Temp 36.1 Pulse 91 Resp 18 B/P (MAP) 145/94 (111) O2 Delivery Room Air Progress Progress Note : Progress Note 23-year-old male with above history coming in due to elevated heart rate. ABCs were intact and vitals were stable on presentation. His heart rate is ranging between 70s to 90s mostly. They are brief seconds where it is right at 100. EKG ordered and interpreted by me showing no acute ischemic changes, no delta wave, narrow QRS. Chest x-ray ordered and interpreted by me showing normal cardiac silhouette, no pneumothorax, no pneumonia or pleural effusion. I did a [id number] ultrasound showing normal ejection fraction, no pericardial effusion, normal lung sliding bilaterally. He is low risk for PE per [place] criteria and has no signs of a DVT on exam. PE very unlikely. Additionally, he would be very low risk with no risk factors for ACS at this point. Later on during the visit, the patient was turning his attention to his abdomen. I was able to palpate an umbilical hernia that was easily reducible. No pain with this. I believe he is stable for discharge with outpatient follow-up. He was sent home with strict return precautions Initial ECG Impression Date: Jul 18, 2023 Initial ECG Impression Time: 16:31 Initial ECG Rate: 100 Initial ECG Rhythm: S.Tach Comment Narrow QRS, normal axis, no significant ST changes or T wave abnormalities Diagnostic Imaging Diagonstic Imaging: Xray (chest) Comments NAME: STAN MERCHANT [facility] REC#: [id number] PT STATUS: REG ER : 2000 PHYSICIAN: FRANTZ TREJO MD ADMIT DATE: 07/18/23/ER FS Draft Date of Exam:07/18/23 CHEST 1 VIEW, AP/PA ONLY EXAM: Chest 1 view, AP/PA only INDICATION: Chest pain. COMPARISON: 08/27/2022. FINDINGS: Normal heart size and central pulmonary vascularity. Lungs are clear. No pleural effusion or pneumothorax. No acute osseous finding. IMPRESSION: Negative chest. Dictated on workstation # [id number] Dict: 07/18/23 1701 Trans: 07/18/23 1706 [facility] [id number] Interpreted by: RONN IBARRA MD Electronically signed by: Departure Impression Primary Impression: Chest discomfort Additional Impression: Umbilical hernia Qualified Codes: K42.9 - Umbilical hernia without obstruction or gangrene Disposition: 01 HOME, SELF-CARE Condition: Stable Departure-Patient Inst. Decision time for Depature: 17:10 Referrals: VAL VICKERS APRN (PCP) Primary Care Physician [facility] (Family) Primary Care Physician SHIRLEY BOB BASHAR J MD Patient Instructions: Chest Pain That Is Not Caused by the Heart (DC), Abdominal Hernia (DC) Add. Discharge Instructions: We are not seeing any evidence of any life-threatening causes of your elevated heart rate and chest discomfort. Additionally we are not seeing any evidence of things such as appendicitis or anything in your abdomen. You do have an umbilical hernia which we were able to put back in to place. This will continue to slide out with any type of increasing pressure in your abdomen such as coughing or sitting up. If this bothers you a lot, he can see his surgeon, Dr. Bob's number is in this paperwork. In regards to your heart rate, if it is persistently elevated we would recommend following up with a sampler pickup. Dr. Alcaraz's number is in this paperwork as well. Work/School Note: Work Release Form Date Seen in the Emergency Department: Jul 18, 2023 Return to Work: Jul 19, 2023 Restrictions: No Restrictions FRANTZ TREJO MD Jul 18, 2023 16:33
--- NOTE | 2023-07-18 17:06 | Diagnostic Imaging Report ---
EXAM: Chest 1 view, AP/PA only INDICATION: Chest pain. COMPARISON: 08/27/2022. FINDINGS: Normal heart size and central pulmonary vascularity. Lungs are clear. No pleural effusion or pneumothorax. No acute osseous finding. IMPRESSION: Negative chest. Dictated by: Dictated on workstation # [id number]
[2023-07-18 17:11] VITALS: BP 138/87
== END 2023-07-18 17:11 | disposition home or self-care (01) ==
LOC: EDUNIT# 16:20 → ER FS 16:21
DX: R07.89 Other chest pain (principal); K42.9 Umbilical hernia without obstruction or gangrene; Z28.310 Unvaccinated for COVID-19
CPT/HCPCS: 71045; 93005

== ENCOUNTER 2023-07-20 13:01 | Emergency (ER) | payer SELFPAY ==
[~2023-07-20] VITALS: Ht 180 cm; Wt 75.0 kg
[2023-07-20 13:26] VITALS: BP 127/97
--- NOTE | 2023-07-20 13:28 | ED General ---
General Stated Complaint: ELEV HR; BACK PAIN Source of Information: Patient Exam Limitations: No Limitations History of Present Illness Date Seen by Provider: Jul 20, 2023 Time Seen by Provider: 13:17 Initial Comments 23-year-old male presents to the emergency department today for elevated heart rates. Symptoms started several days ago. He was seen in the emergency department at that time and had a work-up with normal labs, EKG chest x-ray. He has an appoint with his primary doctor today at 4 but was concerned because "it is just not getting better." He is also concerned because he states he frequently feels his pulse on both arms at the same time and feels weaker in the left side. Any cough, shortness of breath. He does have intermittent sharp stabbing chest pains that are diffuse and at spontaneous places in his chest each time. They are brief and only last a few seconds. He does not have a cough. No fevers or chills. No sick contacts All other systems reviewed and negative except documented per HPI. Voice recognition software was used to help create this chart Allergies and Home Medications Allergies Coded Allergies: No Known Drug Allergies (Unverified , 08/06/19) Patient Home Medication List Home Medication List Reviewed: Yes Amoxicillin/Potassium Clav (Amox Tr-K Clv 875-125 mg Tab) 875 Mg-125 Mg Tablet, 1 EACH PO BID Prescribed by: FRANTZ TREJO on 04/19/23 1738 Doxycycline Hyclate (Doxycycline Hyclate) 100 Mg Tablet, 100 MG PO BID Prescribed by: DESTINY CHAVIRA on 08/06/19 1700 Doxycycline Hyclate (Doxycycline Hyclate) 100 Mg Tablet, 100 MG PO BID Prescribed by: JAY BUSCH on 06/29/21 0410 Review of Systems Review of Systems Constitutional: see HPI Past Bovrncy-Nmrlwk-Tsycgr Hx Patient Social History Tobacco Use?: No Use of E-Cig and/or Vaping dev: No Substance use?: No Alcohol Use?: No Immunizations Up To Date First/Initial COVID19 Vaccinat: denies Second COVID19 Vaccination Isaac: denies Third COVID19 Vaccination Date: denies Seasonal Allergies Seasonal Allergies: No Past Medical History Surgery/Hospitalization HX: Asthma, Perforation right eardrum surgery Surgeries: Yes (Ear drum repair, BMT) Respiratory: No Cardiac: No Neurological: No Genitourinary: No Gastrointestinal: No Musculoskeletal: No Endocrine: No HEENT: No Cancer: No Psychosocial: No Integumentary: No Blood Disorders: No Physical Exam Vital Signs Capillary Refill : Height, Weight, BMI Height: '" Weight: lbs. oz. kg; 22.00 BMI Method: General Appearance: No Apparent Distress, WD/WN Eyes: Bilateral Eye Normal Inspection, Bilateral Eye PERRL, Bilateral Eye EOMI HEENT: Normal ENT Inspection, Pharynx Normal Neck: Full Range of Motion, Non Tender, Supple Respiratory: Chest Non Tender, Lungs Clear, Normal Breath Sounds, No Accessory Muscle Use, No Respiratory Distress Cardiovascular: Regular Rate, Rhythm, No Murmur, Normal Peripheral Pulses Gastrointestinal: Normal Bowel Sounds, Non Tender, Soft Back: Normal Inspection, No Vertebral Tenderness Extremity: Normal Capillary Refill, No Calf Tenderness, Other (Equal pulses bilaterally. Normal blood pressures bilateral upper extremities) Neurologic/Psychiatric: Alert, Oriented x3 Progress/Results/Core Measures Suspected Sepsis SIRS Temperature: Pulse: Respiratory Rate: Blood Pressure / Mean: Results/Orders Vital Signs/I&O Capillary Refill : Departure Impression Primary Impression: Encounter for medical screening examination Disposition: HOME, SELF-CARE Condition: Stable Departure-Patient Inst. Referrals: VAL VICKERS APRN (PCP) Primary Care Physician [facility] (Family) Primary Care Physician Add. Discharge Instructions: No emergent conditions are identified for your symptoms today. I recommend you keep your appointment with your primary doctor at 4:00. Return to the ER for any severe concerns. FEMI MENDEZ DO Jul 20, 2023 13:28
== END 2023-07-20 13:30 | disposition home or self-care (01) ==
LOC: EDUNIT# 13:01 → ER FS 13:02
DX: Z00.00 Encounter for general adult medical examination without abnormal findings (principal); Z28.310 Unvaccinated for COVID-19
CPT/HCPCS: 99281